=== PATIENT | female | born 1995 | race Caucasian/White ===

== ENCOUNTER 2023-10-30 02:09 | Outpatient (CLI) | payer MEDICAID ==
[2023-10-30] VITALS (21 sets, daily range): BP systolic 108–135; BP diastolic 63–90; PULSE 61–91
== END 2023-10-30 23:59 | disposition home or self-care (01) ==
LOC: CARD DIAG 02:09
PROVIDERS: ATTEND Nurse Practitioner Family
DX: R55 Syncope and collapse (principal)
CPT/HCPCS: 93660

== ENCOUNTER 2024-03-09 11:14 | Day surgery (SDC) | payer MEDICAID ==
[~2024-03-09] VITALS: Ht 165.1 cm; Wt 47.7 kg
[~2024-03-09 11:14] MED LIST: CALC500T13 PO; CETI10TA14 PO; OMEP20TA43 PO; ONDA-245; SERT-433 PO
[2024-03-09 11:34] VITALS: BP 128/88; PULSE 90; RESP 16
[2024-03-09] MEDS ORDERED: ondansetron/PF 4mg/2ml inj ONE (12:46)
[2024-03-09] MEDS ORDERED: simethicone 40mg/0.6ml oral drops 30ml ONE (12:46)
[2024-03-09] MEDS ORDERED: midazolam 1 mg/ML 2ml injection ONE (12:55)
[2024-03-09] MEDS ORDERED: fentaNYL/PF 50MCG/1 ML 2ML syringe ONE (12:55)
[2024-03-09] MEDS ORDERED: propofol inj 20 ML IV ONE (13:15)
[2024-03-09 13:17] VITALS: BP 96/64; PULSE 59; RESP 15; O2SAT 100
[2024-03-09 13:27] VITALS: BP 103/69; PULSE 59; RESP 10; O2SAT 100
[2024-03-09 13:37] VITALS: BP 102/69; PULSE 53; RESP 11; O2SAT 99
[2024-03-09 13:47] VITALS: BP 106/76; PULSE 54; RESP 18; O2SAT 100
== END 2024-03-09 13:55 | disposition home or self-care (01) ==
LOC: GI LAB 11:14
PROVIDERS: ATTEND Internal Medicine Gastroenterology
DX: R19.7 Diarrhea, unspecified (principal); Z88.0 Allergy status to penicillin; Z88.2 Allergy status to sulfonamides
CPT/HCPCS: 45380; J2250; J2405; J2704; J3010; J7030; Z7512; A4618; A4620

== ENCOUNTER 2024-11-18 11:43 | Outpatient (CLI) | payer MEDICAID ==
--- NOTE | 2024-11-18 15:22 | RADIOLOGY REPORT ---
EXAM: NM GASTRIC EMPTYING STDY-DM History: MARIANN-DANLOS SYNDROME, UNSPECIFIED Comparison Study: None TECHNIQUE: Following ingestion of a liquid water gastric emptying test meal labeled with 0.99 mCi Tc-99m sulfur colloid, anterior and posterior images are obtained in the upright position at approximately 30 minut es. Regions of interest were drawn around the stomach, and geometric mean time activity curves were g enerated. FINDINGS: Initial activity in the gastric fundus progressively moves into the antrum and subsequently empties f rom the stomach. Over the imaging interval, radiotracer empties from the stomach into the small bowel without evidence of obstruction. Percent retained gastric activity is as follows: 87% at 29 minutes Liquid gastric half emptying time was not calculable. IMPRESSION: 1. Markedly delayed liquid gastric emptying.
== END 2024-11-18 23:59 | disposition home or self-care (01) ==
LOC: RAD 11:43
PROVIDERS: ATTEND Surgery
DX: K30 Functional dyspepsia (principal); F41.9 Anxiety disorder, unspecified; Q79.60 Ehlers-Danlos syndrome, unspecified; K55.1 Chronic vascular disorders of intestine; D89.40 Mast cell activation, unspecified; D55.1 Anemia due to other disorders of glutathione metabolism
CPT/HCPCS: 78264; A9541